=== PATIENT | female | born 1965 | race Hispanic/Latino ===

== ENCOUNTER 2018-03-23 18:58 | Observation (INO) | payer BC ==
[2018-03-23 18:59] VITALS: BMI 43.2
[2018-03-23 19:57] VITALS: RESP 18
[2018-03-23 20:00] LABS: BASO # 0.02 K/mm3 (0.0-2.0); BASO % 0.3 % (0.0-3.0); EOS # 0.4 (0.0-0.7); EOS % 5.3 % (1.5-5.0); GRAN # 4.63 (1.4-6.5); HEMOGLOBIN 13.3 g/dL (12.0-16.0); LYMPH # 2.2 (1.2-3.4); LYMPH % 28.6 % (22.0-35.0); MEAN CELL VOLUME 79.3 fl (80.0-105.0); MEAN CORPUSCULAR HEMOGLOBIN 25.8 pg (25.0-35.0); MEAN CORPUSCULAR HGB CONC 32.5 g/dl (31.0-37.0); MEAN PLATELET VOLUME 8.8 fl (7.0-11.0); MONO # 0.5 (0.1-0.6); MONO % 5.8 % (1.0-6.0); RBC 5.16 10^6/uL (3.5-6.1); RED CELL DISTRIBUTION WIDTH 14.1 % (11.5-14.5); WHITE BLOOD COUNT 7.7 10^3/ul (4.5-11.0)
[2018-03-23 20:06] LABS: ALB/GLOB RATIO 1.2 (1.1-1.8); ALT/SGPT 35 U/L (7-56); AST/SGOT 23 U/L (14-36); BLOOD UREA NITROGEN 18 mg/dL (7-21); CALCIUM 9.9 mg/dL (8.4-10.5); GFR AFRICAN-AMERICAN > 60; GFR NON-AFRICAN AMERICAN > 60
[2018-03-23 20:09] LABS: URINE BILIRUBIN NEGATIVE (NEGATIVE); URINE BLOOD NEGATIVE (NEGATIVE); URINE GLUCOSE (UA) NEGATIVE (NEGATIVE); URINE LEUKOCYTE ESTERASE NEGATIVE Leu/uL (NEGATIVE); URINE PROTEIN NEGATIVE mg/dL (<30 mg/dL); URINE UROBILINOGEN 0.2 E.U./dL (<1 E.U./dL)
[2018-03-23 20:10] LABS: URINE APPEARANCE CLEAR (CLEAR); URINE COLOR YELLOW (YELLOW)
[2018-03-23 20:17] LABS: TROPONIN I < 0.01 ng/mL
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
[2018-03-23] MEDS: Oxycodone/Acetaminophen 5/325 mg Tab PO PRN (23:21)
[2018-03-23 23:22] LABS: TROPONIN I < 0.01 ng/mL
--- NOTE | 2018-03-23 23:36 | CP.PCM.HP ---
<Declan Iglesias - Last Filed: 03/24/18 02:16> History of Present Illness - History of Present Illness History of Present Illness: Medicine H&P: Dr. Joyce Chief Complaint: Chest Pain HPI: 53 year old female with past medical history of hypercholesterolemia, hypertension, and STEMI s/p stents presenting with substernal, left sided 8/10 chest pain that radiates to her left arm and is not associated with any other symptoms including shortness of breath. Patient follows with Dr. Bhatti, last ECHO was in 2016 with EF of 65%, mild TR, but good LV function. Patient's last stress test was also in 2016. Stents were placed in 2014. Review of Systems: 12 point ROS obtained and negative, except as per HPI Surgical History: Stents, Cholecystectomy Medical History: Hypercholesterolemia, hypertension, Cervical pinched nerve, and STEMI s/p stents Allergies: NKDA Social History: Patient denies illicits; tobacco; +social alcohol Home Meds: Reviewed, per MAR Family History: Lung CA, AMI PMD: Dr. Valeri Loomis; saw Dr. Ramírez in the past Present on Admission - Present on Admission Any Indicators Present on Admission: No Past Patient History - Infectious Disease Hx of Infectious Diseases: None - Tetanus Immunizations Tetanus Immunization: Unknown - Past Social History Smoking Status: Never Smoked - CARDIAC Hx Heart Attack: Yes Hx Hypertension: Yes - PULMONARY Hx Respiratory Disorders: No - NEUROLOGICAL Hx Neurological Disorder: No - HEENT Hx HEENT Problems: No - RENAL Hx Chronic Kidney Disease: No - ENDOCRINE/METABOLIC Hx Endocrine Disorders: No - HEMATOLOGICAL/ONCOLOGICAL Hx Blood Transfusions: Yes Hx Blood Transfusion Reaction: No - INTEGUMENTARY Hx Dermatological Problems: No - MUSCULOSKELETAL/RHEUMATOLOGICAL Hx Arthritis: Yes - GASTROINTESTINAL Hx Gall Bladder Disease: Yes - GENITOURINARY/GYNECOLOGICAL Hx Genitourinary Disorders: No - PSYCHIATRIC Hx Depression: No Hx Emotional Abuse: No Hx Physical Abuse: No Hx Substance Use: No - SURGICAL HISTORY Hx Cholecystectomy: Yes Hx Musculoskeletal Surgery: Yes - ANESTHESIA Hx Anesthesia Reactions: No Hx Malignant Hyperthermia: No Meds Allergies/Adverse Reactions: Allergies Allergy/AdvReac Type Severity Reaction Status Date / Time No Known Allergies Allergy Verified 03/29/15 17:42 Physical Exam - Constitutional Appears: Well - Head Exam Head Exam: ATRAUMATIC, NORMAL INSPECTION, NORMOCEPHALIC - Eye Exam Eye Exam: EOMI, Normal appearance, PERRL Pupil Exam: NORMAL ACCOMODATION, PERRL - ENT Exam ENT Exam: Mucous Membranes Moist, Normal Exam - Neck Exam Neck exam: Positive for: Normal Inspection - Respiratory Exam Respiratory Exam: Clear to Auscultation Bilateral, NORMAL BREATHING PATTERN - Cardiovascular Exam Cardiovascular Exam: REGULAR RHYTHM - GI/Abdominal Exam GI & Abdominal Exam: Normal Bowel Sounds, Soft. absent: Tenderness - Extremities Exam Extremities exam: Positive for: normal inspection - Back Exam Back exam: NORMAL INSPECTION - Neurological Exam Neurological exam: Alert, CN II-XII Intact, Normal Gait, Oriented x3, Reflexes Normal - Psychiatric Exam Psychiatric exam: Normal Affect, Normal Mood - Skin Skin Exam: Dry, Intact, Normal Color, Warm Results - Vital Signs Recent Vital Signs: Last Vital Signs Temp 98.4 F 03/23/18 19:21 Pulse 78 03/23/18 19:21 Resp 18 03/23/18 19:21 BP 172/97 H 03/23/18 19:21 Pulse Ox 96 03/23/18 19:21 - Labs Result Diagrams: 03/23/18 19:47 03/23/18 19:47 Labs: Laboratory Results - last 24 hr 03/23/18 22:50 Phosphorus 4.5 Magnesium 2.1 Lactate Dehydrogenase 528 Total Creatine Kinase 72 Troponin I < 0.01 Assessment & Plan - Assessment and Plan (Free Text) Assessment: 53 year old female with extensive cardiac history presenting with left sided chest pain. Trope X 1 and EKG are negative. CBC and CMP are unremarkable, mg and phos within normal limits. Patient mildly hypertensive on admission. ASCVD significantly elevated. Previous lipid panel in the system from 2014, Previous ECHO from 2016 (showed normal EF with mild TR). Plan: Chest Pain rule out ACS - EKG, Tropes series, Lipid panel, TSH, A1C - ECHO - If no intervention on this admission, patient needs outpatient stress test - Cardio Consult: Dr. Bhatti History CAD s/p Stents - Continue ASA, Plavix, Metoprolol - Consider discontinuing plavix if >1 year since last stent - Consider Lipitor, Lisinopril for mortality benefit History Hyperlipidemia - Consider Lipitor History Pinched Nerve - Continue home Percocet GI/DVT Prophylaxis - Protonix/Plavix <Ramses Joyce - Last Filed: 03/24/18 05:48> Results - Vital Signs Recent Vital Signs: Last Vital Signs Temp 97.8 F 03/24/18 00:53 Pulse 72 03/24/18 02:00 Resp 18 03/24/18 00:53 BP 148/89 03/24/18 00:53 Pulse Ox 96 03/23/18 19:21 - Labs Result Diagrams: 03/23/18 19:47 03/23/18 19:47 Labs: Laboratory Results - last 24 hr 03/23/18 22:50 Phosphorus 4.5 Magnesium 2.1 Lactate Dehydrogenase 528 Total Creatine Kinase 72 Troponin I < 0.01 Attending/Attestation - Attestation I have personally seen and examined this patient.: Yes I have fully participated in the care of the patient.: Yes I have reviewed all pertinent clinical information: Yes Notes (Text): 03/24/18 05:47 Patient was seen when she was in the ER. Medical record was reviewed. Agree with history, physical examination and assessment.
[2018-03-24] MEDS: Oxycodone/Acetaminophen 5/325 mg Tab PO PRN ×3 (03:40→19:14)
[2018-03-24] MEDS: Pantoprazole 40 mg EC Tab PO SCH (05:33)
[2018-03-24 06:50] LABS: BASO # 0.02 K/mm3 (0.0-2.0); BASO % 0.3 % (0.0-3.0); EOS # 0.4 (0.0-0.7); EOS % 5.5 % (1.5-5.0); GRAN # 3.52 (1.4-6.5); GRAN % 51.4 % (50.0-68.0); HEMOGLOBIN 12.3 g/dL (12.0-16.0); LYMPH # 2.5 (1.2-3.4); LYMPH % 36.8 % (22.0-35.0); MEAN CELL VOLUME 79.4 fl (80.0-105.0); MEAN CORPUSCULAR HEMOGLOBIN 25.1 pg (25.0-35.0); MEAN CORPUSCULAR HGB CONC 31.6 g/dl (31.0-37.0); MEAN PLATELET VOLUME 8.7 fl (7.0-11.0); MONO # 0.4 (0.1-0.6); RBC 4.9 10^6/uL (3.5-6.1); RED CELL DISTRIBUTION WIDTH 14.4 % (11.5-14.5); WHITE BLOOD COUNT 6.9 10^3/ul (4.5-11.0)
[2018-03-24 07:04] LABS: ALB/GLOB RATIO 1.2 (1.1-1.8); ALT/SGPT 38 U/L (7-56); AST/SGOT 23 U/L (14-36); BLOOD UREA NITROGEN 17 mg/dL (7-21); CALCIUM 9.5 mg/dL (8.4-10.5); GFR AFRICAN-AMERICAN > 60; GFR NON-AFRICAN AMERICAN > 60; HDL CHOLESTEROL 51 mg/dL (29-60)
[2018-03-24 07:14] LABS: TROPONIN I < 0.01 ng/mL
[2018-03-24 07:15] LABS: LDL CHOLESTEROL 68 mg/dL (0-129)
--- NOTE | 2018-03-24 08:41 | RAD ---
HISTORY: arm pain COMPARISON: 04/29/2015 FINDINGS: LUNGS: No active pulmonary disease. PLEURA: No significant pleural effusion identified, no pneumothorax apparent. CARDIOVASCULAR: No radiographic findings to suggest acute or significant cardiovascular disease. OSSEOUS STRUCTURES: No significant abnormalities. VISUALIZED UPPER ABDOMEN: Normal. OTHER FINDINGS: None. IMPRESSION: No active disease. No significant interval change compared to the prior examination(s).
--- NOTE | 2018-03-24 11:06 | CON ---
DATE: 03/24/2018 HISTORY HISTORY OF PRESENT ILLNESS: The patient is a 53-year-old woman with a history of PTCA in the past who presents with an episode of angina. Symptoms occurred at rest. PAST MEDICAL HISTORY: Notable for hypertension as well as hypercholesterolemia. SOCIAL HISTORY: The patient does not smoke. REVIEW OF SYSTEMS: A 14-point review of systems was reviewed in detail. No cardiac symptomatology is noted. PHYSICAL EXAMINATION: VITAL SIGNS: Blood pressure is 137/70, heart rate in the 70s. NECK: Negative JVD. LUNGS: Without rales. HEART: Reveal S1, S2. EXTREMITIES: Without edema. LABORATORY DATA: Hemoglobin is 12.3. Troponins are negative x3. IMPRESSION: 1. Recurrent angina. 2. Coronary artery disease. 3. Hypercholesterolemia. 4. Hypertension. Given these findings, there is no evidence for acute coronary syndrome. We will arrange for an outpatient stress test, which can be done electively. Janusz Bhatti MD
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
[2018-03-24 14:37] LABS: TROPONIN I < 0.01 ng/mL
--- NOTE | 2018-03-24 19:48 | CARD ---
APPROVED REPORT EXAM: Two-dimensional and M-mode echocardiogram with Doppler and color Doppler. INDICATION Chest Pain singnificant cardiac history 2D DIMENSIONS Left Atrium (2D)4.1 (1.6-4.0cm)IVSd0.9 (0.7-1.1cm) LVDd4.5 (3.9-5.9cm)PWd0.9 (0.7-1.1cm) LVDs3.0 (2.5-4.0cm)FS (%) 34.7 % LVEF (%)64.0 (>50%) M-Mode DIMENSIONS Aortic Root3.00 (2.2-3.7cm)Aortic Cusp Exc.1.70 (1.5-2.0cm) Aortic Valve AoV Peak Kdmjpcvk528.0cm/[place] Peak GR.7mmHg Mitral Valve MV E Uyxqnyqm08.8cm/sMV A Gyikylnk07.3cm/sE/A ratio1.1 TDI Lateral E' Peak V10.60cm/sMedial E' Peak V7.31cm/sE/Lateral E'8.8 E/Medial E'12.8 Pulmonary Valve PV Peak Eyysmyzk09.9cm/sPV Peak Grad.2mmHg Tricuspid Valve TR Peak Hzqcjrwp252zy/sRAP [id number] Peak Gr.24mmHg [id number] LEFT VENTRICLE The left ventricle is normal size. There is normal left ventricular wall thickness. The left ventricular function is normal. The left ventricular ejection fraction is within the normal range. There is normal LV segmental wall motion. Transmitral Doppler flow pattern is Grade I-abnormal relaxation pattern. RIGHT VENTRICLE The right ventricle is normal size. There is normal right ventricular wall thickness. The right ventricular systolic function is normal. ATRIA The left atrium size is normal. The right atrium size is normal. AORTIC VALVE The aortic valve is normal in structure. No aortic regurgitation is present. There is no aortic valvular stenosis. MITRAL VALVE The mitral valve is normal in structure. There is no mitral valve regurgitation noted. There is no mitral valve stenosis. TRICUSPID VALVE The tricuspid valve is normal in structure. There is mild tricuspid regurgitation. There is mild pulmonary hypertension. PULMONIC VALVE There is trace pulmonic valvular regurgitation. GREAT VESSELS The aortic root is normal in size. The IVC is normal in size and collapses >50% with inspiration. PERICARDIAL EFFUSION There is no pericardial effusion. <Conclusion> The left ventricle is normal size. There is normal left ventricular wall thickness. The left ventricular function is normal. The left ventricular ejection fraction is within the normal range. There is normal LV segmental wall motion. Transmitral Doppler flow pattern is Grade I-abnormal relaxation pattern. There is mild tricuspid regurgitation. There is mild pulmonary hypertension.
--- NOTE | 2018-03-24 20:10 | CARD ---
APPROVED REPORT EKG Measurement Heart [id number] <Conclusion> Normal sinus rhythm Normal ECG
--- NOTE | 2018-03-24 20:33 | CARD ---
APPROVED REPORT EKG Measurement Heart [id number] [place] [id number] <Conclusion> Normal sinus rhythm with sinus arrhythmia Normal ECG
[2018-03-25 01:32] VITALS: TEMP 98.5
[2018-03-25] MEDS: Oxycodone/Acetaminophen 5/325 mg Tab PO PRN (05:49)
[2018-03-25] MEDS: Pantoprazole 40 mg EC Tab PO SCH (05:50)
[2018-03-25 06:06] VITALS: O2SAT 94
[2018-03-25 06:21] LABS: BASO # 0.01 K/mm3 (0.0-2.0); BASO % 0.1 % (0.0-3.0); EOS # 0.4 (0.0-0.7); GRAN # 3.97 (1.4-6.5); GRAN % 56.8 % (50.0-68.0); HEMOGLOBIN 12.4 g/dL (12.0-16.0); LYMPH # 2.2 (1.2-3.4); LYMPH % 31.4 % (22.0-35.0); MEAN CELL VOLUME 79.8 fl (80.0-105.0); MEAN CORPUSCULAR HEMOGLOBIN 25.4 pg (25.0-35.0); MEAN CORPUSCULAR HGB CONC 31.8 g/dl (31.0-37.0); MEAN PLATELET VOLUME 8.7 fl (7.0-11.0); MONO # 0.4 (0.1-0.6); MONO % 5.7 % (1.0-6.0); RBC 4.89 10^6/uL (3.5-6.1); RED CELL DISTRIBUTION WIDTH 14.2 % (11.5-14.5)
[2018-03-25 06:42] LABS: ALB/GLOB RATIO 1.1 (1.1-1.8); ALBUMIN 3.8 g/dL (3.0-4.8); ALT/SGPT 33 U/L (7-56); AST/SGOT 23 U/L (14-36); BLOOD UREA NITROGEN 20 mg/dL (7-21); CALCIUM 9.1 mg/dL (8.4-10.5); GFR AFRICAN-AMERICAN > 60; GFR NON-AFRICAN AMERICAN > 60
[2018-03-25 09:17] VITALS: BP 128/60
--- NOTE | 2018-03-25 09:31 | RAD ---
PROCEDURE: Radiographs of the Left Shoulder HISTORY: Pain COMPARISON: No prior. FINDINGS: BONES: Bone alignment and mineralization are normal. There is no acute displaced fracture or bone destruction. JOINTS: Normal. Glenohumeral and acromioclavicular joints preserved. SOFT TISSUES: There are lobular calcifications lateral to the humeral. OTHER FINDINGS: None. IMPRESSION: Lobular calcifications lateral to the humeral may represent calcific tendinitis in the appropriate clinical setting. No acute fracture, dislocation or significant degenerative osteoarthrosis.
--- NOTE | 2018-03-25 10:08 | PN ---
SUBJECTIVE: The patient was seen and examined at bedside on the telemetry raygoza. No acute events overnight. She remains afebrile, hemodynamically stable and chest pain free. She reports that she has been chest pain free since admission and furthermore the etiology of her pain likely was musculoskeletal in nature. This morning she feels great and is looking forward to going home. OBJECTIVE: VITAL SIGNS: Temperature 98.5, pulse 82, blood pressure 125/74, respiratory rate 18, oxygen saturation 98% on room air. GENERAL: No apparent distress. HEENT: PERRL, EOMI. No scleral icterus. No conjunctival pallor. NECK: No JVD. No bruits. LUNGS: Clear to auscultation. CARDIOVASCULAR: Regular rate and rhythm. Normal S1 and S2. ABDOMEN: Normoactive bowel sounds. Soft, nontender, nondistended. EXTREMITIES: No edema. NEUROLOGIC: Awake, alert, and oriented x 3. No focal motor deficits. LABORATORY DATA: CBC reviewed and unremarkable. CMP reviewed and unremarkable. Troponin less than 0.01 x 4 sets. ASSESSMENT: The patient is a 53 year old woman with a past medical history of hyperlipidemia , hypertension and CAD s/p STEMI s/p PCI with stent placement who presented with a several day history of chest wall pain and who was initially admitted to the telemetry raygoza to rule out ACS with subsequent workup deeming the etiology of chest pain likely musculoskeletal in nature. PLAN: 1. Chest wall pain. Continue with NSAIDs as needed. The patient has been evaluated by Dr. Ashford and has an x-ray and MRI pending. 2. CAD s/p PCI with stent placement. Continue Aspirin 81 mg p.o. daily, Plavix 75 mg p.o. daily and Metoprolol 50 mg p.o. b.i.d. 3. Hyperlipidemia. The patient is not on statin due to history of myopathy. 4. Hypertension, blood pressure controlled. Continue with Metoprolol 50 mg p.o. b.i.d. 5. Disposition. The patient for discharge to home today. CODE STATUS: Full code. Ever Walsh MD [facility] # [id number] ELSA
[2018-03-25 10:54] VITALS: PULSE 99
--- NOTE | 2018-03-25 10:57 | PN ---
DATE: 03/25/2018 CARDIOLOGY FOLLOWUP SUBJECTIVE: The patient is without shortness of breath, without chest pain. OBJECTIVE: VITAL SIGNS: Blood pressure is 128/60, heart rates in the 80s. NECK: Negative JVD. LUNGS: Without rales. HEART: S1, S2. EXTREMITIES: Without edema. DATA: Hemoglobin is 12.4. Chemistries, troponins are negative x2. IMPRESSION: 1. No evidence for acute coronary syndrome. 2. Resolution of chest pain. 3. X-ray of the left shoulder is unremarkable. 4. History of coronary artery disease. Given these findings, the patient's cardiac status is stable. We will discontinue Telemetry today. Outpatient stress test has been scheduled for next week. Janusz Bhatti MD
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
--- NOTE | 2018-03-25 15:04 | DS ---
ADMITTING DIAGNOSES: Chest pain, rule out acute coronary syndrome. DISCHARGE DIAGNOSIS: Musculoskeletal chest wall pain. SECONDARY DIAGNOSES: Hypertension, hyperlipidemia and CAD s/p STEMI s/p PCI with stent placement. CONSULTATIONS: Dr. Ashford (Orthopedic Surgery) and Dr. Bhatti (Cardiology). IMAGING STUDIES: 1. Chest x-ray demonstrated no active disease. 2. X-ray of the left shoulder demonstrated lobular calcifications lateral to the humerus which may represent calcific tendinitis. DIAGNOSTIC STUDIES: TTE demonstrated normal LV size and function. PROCEDURES: None. HISTORY OF PRESENT ILLNESS: The patient is a 53 year old woman with a past medical history of hyperlipidemia , hypertension and CAD s/p STEMI s/p PCI with stent placement who presented for evaluation of substernal left-sided chest pain with radiation to her left arm that was not associated with any other symptoms. The patient reported being in her usual state of health until 3 days prior to presentation when she developed the aforementioned symptoms. She denied any exacerbation of symptoms with exertion but, given her underlying cardiac history, she opted for ED evaluation. Upon arrival to the ED she was found to be afebrile, hemodynamically stable and with unremarkable initial laboratory studies and EKG. She was subsequently admitted to the telemetry raygoza for a cardiac evaluation and to cycle cardiac enzymes. HOSPITAL COURSE: Upon admission to the telemetry raygoza she was resumed on her outpatient medications. Cardiac enzymes were cycled for 4 sets, all of which were negative. She was also evaluated by Dr. Bhatti of Cardiology and it was thought that the etiology of her chest pain was likely musculoskeletal in nature. After undergoing a normal TTE and having 4 sets of negative cardiac enzymes, she was cleared from the cardiac standpoint for discharge home with arrangements made for outpatient stress testing. On hospital day #3, she was discharged to home. CONDITION: Good, improved. DISPOSITION: Home. DISCHARGE MEDICATIONS: Toprol XL 50 mg p.o. daily, Aspirin 81 mg p.o. daily and Percocet 5/325 mg 1 tab every 6 hours p.r.n. pain. DISCHARGE INSTRUCTIONS: The patient was advised if she has any recurrence of her symptoms, present to her PMD or to the nearest ED immediately. FOLLOWUP: The patient to follow up with her PMD within 1 week of discharge. The patient to follow up with Dr. Bhtati for an outpatient stress test as scheduled. Ever Walsh MD [facility] # [id number] ELSA
== END 2018-03-25 12:10 | disposition home or self-care (01) ==
LOC: ED 18:58 → ERH 21:51 → 2RNO 23:00
PROVIDERS: ADMIT Internal Medicine; ATTEND Student in an Organized Health Care Education/Training Program
DX: R07.89 Other chest pain (principal); Z82.49 Family history of ischemic heart disease and other diseases of the circulatory system; Z80.1 Family history of malignant neoplasm of trachea, bronchus and lung; E78.00 Pure hypercholesterolemia, unspecified; E78.5 Hyperlipidemia, unspecified; I10 Essential (primary) hypertension; I25.119 Atherosclerotic heart disease of native coronary artery with unspecified angina pectoris; I25.2 Old myocardial infarction; Z79.82 Long term (current) use of aspirin; Z90.49 Acquired absence of other specified parts of digestive tract
CPT/HCPCS: 36415; 71045; 73030; 80053; 80061; 81003; 82550; 83036; 83615; 83735; 84100; 84443; 84484; 85025; 93005; 93306; 97116; 97161; 97530; 99285; G0378; G8978; G8979; G8980

== ENCOUNTER 2018-04-11 07:15 | Day surgery (SDC) | payer BC ==
[2018-04-09 11:21] VITALS: BMI 49.3
[2018-04-11 07:52] VITALS: RESP 18
[2018-04-11 08:01] LABS: BASO # 0.02 K/mm3 (0.0-2.0); BASO % 0.3 % (0.0-3.0); EOS # 0.3 (0.0-0.7); EOS % 3.6 % (1.5-5.0); GRAN # 5.66 (1.4-6.5); GRAN % 72.6 % (50.0-68.0); HEMOGLOBIN 12.5 g/dL (12.0-16.0); LYMPH # 1.5 (1.2-3.4); LYMPH % 18.8 % (22.0-35.0); MEAN CELL VOLUME 79.2 fl (80.0-105.0); MEAN CORPUSCULAR HEMOGLOBIN 25.3 pg (25.0-35.0); MEAN CORPUSCULAR HGB CONC 31.9 g/dl (31.0-37.0); MEAN PLATELET VOLUME 8.7 fl (7.0-11.0); MONO # 0.4 (0.1-0.6); MONO % 4.7 % (1.0-6.0); RBC 4.95 10^6/uL (3.5-6.1); RED CELL DISTRIBUTION WIDTH 14.3 % (11.5-14.5); WHITE BLOOD COUNT 7.8 10^3/ul (4.5-11.0)
[2018-04-11 08:11] LABS: BLOOD UREA NITROGEN 16 mg/dL (7-21); CALCIUM 9.2 mg/dL (8.4-10.5); GFR AFRICAN-AMERICAN > 60; GFR NON-AFRICAN AMERICAN > 60
[2018-04-11 08:12] LABS: INR 1.01 (0.93-1.08); PARTIAL THROMBOPLASTIN TIME 26.7 Seconds (25.1-36.5); PROTHROMBIN TIME 11.6 SECONDS (9.4-12.5)
[2018-04-11] MEDS ORDERED: Lidocaine 2% Inj (20ml) ONE (10:17)
[2018-04-11] MEDS ORDERED: Phenylephrine 10 mg/ml Inj ONE (10:17)
[2018-04-11] MEDS ORDERED: Midazolam 2 MG/2 ML VIAL ONE ×2 (10:18→10:59)
[2018-04-11] MEDS ORDERED: Iodixanol 320 MG/ML 200 ML BOTTLE IV ONE (10:18)
[2018-04-11] MEDS ORDERED: Iodixanol 320 MG/ML 100 ML BOTTLE IV ONE (10:18)
[2018-04-11] MEDS ORDERED: Iohexol 350mgl/ml 50 ML ONE (10:18)
[2018-04-11] MEDS ORDERED: Sodium Chloride 0.9% 1,000 ML IV SCH (11:30)
[2018-04-11 11:53] VITALS: TEMP 97.8
--- NOTE | 2018-04-11 12:38 | CARDCATH ---
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 Her stress test is abnormal. Cardiac catheterization was recommended. PROCEDURES: Left heart catheterization with coronary arteriography and left ventriculogram. The right femoral artery was cannulated with a 6-[place] sheath. There were no complications. I performed moderate sedation which included the presence of an independent trained observer who assisted in monitoring the patient's level of consciousness and physiologic status. After administration of Versed and fentanyl, my intra-service time was 15 minutes. The findings on catheterization revealed a left ventricle that contracted normally. Estimated ejection fraction of 60%. Her coronary anatomy revealed a right dominant circulation. The RCA revealed diffuse intimal irregularities with a patent stent in the proximal/mid portion. The distal portions of the PDA revealed diffuse atherosclerosis. The left main artery was unremarkable. The LAD and diagonal vessels revealed diffuse atherosclerosis throughout its course. In the midportion of the LAD, there is a 50% to 60% stenosis noted. The circumflex artery and obtuse marginal branches were free of significant disease. Angio-Seal was used to close the femoral artery site. The patient tolerated the procedure well. In summary, the procedure revealed: 1. Patent stent in the RCA with diffuse disease distally. 2. A 50% to 60% stenosis in the mid LAD. 3. LV function is normal. Given these findings, the patient's treatment should be continued, medical therapy with cardiac risk reduction program and weight loss. Janusz Bhatti MD
[2018-04-11 15:24] VITALS: BP 141/86; PULSE 62; O2SAT 99
--- NOTE | 2018-04-11 16:52 | CARD ---
APPROVED REPORT EKG Measurement Heart [id number] <Conclusion> Normal sinus rhythm Normal ECG
== END 2018-04-11 16:30 | disposition home or self-care (01) ==
LOC: CATH 07:15
PROVIDERS: ATTEND Internal Medicine Cardiovascular Disease
DX: I25.110 Atherosclerotic heart disease of native coronary artery with unstable angina pectoris (principal); I10 Essential (primary) hypertension; E78.00 Pure hypercholesterolemia, unspecified; I25.2 Old myocardial infarction; Z95.1 Presence of aortocoronary bypass graft
CPT/HCPCS: 36415; 80048; 85025; 85610; 85730; 86850; 86900; 93005; 93458; 99152; C1760; C1769; C2629; J1644; J2250; J3010; J7040 ×2; Q9966